=== PATIENT | male | born 1945 | race Two or more races ===

== ENCOUNTER → 2018-08-29 | Outpatient (CLI) | payer OTHER ==
[~2018-08-29] MED LIST: ALLO100T30 PO; DOXA2TAB9 PO; LISI1TAB5 PO; OMEP20TA62 PO; PRAV10TA2 PO
[2018-08-29 11:51] LABS: CHLORIDE 107 mmol/L (98-107)
[2018-08-29 12:00] LABS: ALANINE AMINOTRANSFERASE 22 U/L (12-78); ALBUMIN 3.8 g/dL (3.4-5.0); ALKALINE PHOSPHATASE 95 U/L (45-117); ANION GAP 5 mmol/L (5-15); BILIRUBIN,TOTAL 0.5 mg/dL (0.2-1.0); CREATININE 1.39 mg/dL (0.7-1.3); TOTAL PROTEIN 7.4 g/dL (6.4-8.2)
== END | disposition home or self-care (01) ==
LOC: STAR 10:52
PROVIDERS: ATTEND Surgery
DX: Z01.818 Encounter for other preprocedural examination (principal); K40.20 Bilateral inguinal hernia, without obstruction or gangrene, not specified as recurrent
CPT/HCPCS: 36415; 80053; 93005

== ENCOUNTER 2018-09-07 06:45 | Day surgery (SDC) | payer OTHER ==
[~2018-09-07] VITALS: Ht 170.2 cm; Wt 74.8 kg
[2018-09-07] MEDS ORDERED: BUPIVACAINE/PF-EPI 0.5% 1:200K ONE (06:50)
[2018-09-07] MEDS ORDERED: LACTATED RINGERS 1,000 ML IV SCH (07:32)
[2018-09-07] MEDS ORDERED: ACETAMINOPHEN 500 MG TABLET PO STA (08:19)
[2018-09-07] MEDS ORDERED: GABAPENTIN 300 MG CAPSULE PO STA (08:19)
[2018-09-07] MEDS ORDERED: TAMSULOSIN 0.4 MG CAP.ER.24H PO STA (08:26)
[2018-09-07] MEDS ORDERED: MIDAZOLAM 1 MG/ML, 2ML ONE (08:33)
[2018-09-07] MEDS ORDERED: FENTANYL PF 250 MCG/5ML ONE (08:33)
[2018-09-07] MEDS ORDERED: ROCURONIUM 10MG/ML,5ML ONE (08:34)
[2018-09-07] MEDS ORDERED: NEOSTIGMINE 1 MG/ML, 10ML ONE (09:18)
[2018-09-07] MEDS ORDERED: PHENYLEPHRINE 10 MG/ML ONE (09:18)
[2018-09-07] MEDS ORDERED: GLYCOPYRROLATE 0.2MG/1ML, 5ML ONE (09:18)
[2018-09-07] MEDS ORDERED: CEFOTETAN PMX 2GM/50ML 50 ML ONE (09:30)
[2018-09-07] MEDS ORDERED: VASOPRESSIN 20 UNIT/ML, 1ML ONE (09:41)
[2018-09-07] MEDS ORDERED: DEXAMETHASONE 4 MG/ML, 5ML ONE (09:45)
[2018-09-07] MEDS ORDERED: ONDANSETRON 2MG/ML, 2ML ONE ×2 (09:45)
[2018-09-07] MEDS ORDERED: PROPOFOL 10 MG/ML, 20ML ONE (09:45)
[2018-09-07] MEDS ORDERED: LIDOCAINE 2% 100MG/5ML SYRINGE ONE (09:45)
[2018-09-07] MEDS ORDERED: MEPERIDINE/PF 25MG/0.5ML IVPush PRN (10:30)
[2018-09-07] MEDS ORDERED: HALOPERIDOL 5 MG/ML IV PRN (10:30)
[2018-09-07] MEDS ORDERED: HYDROmorphone 2 MG/ML, 1ML IVPush PRN (10:30)
[2018-09-07] MEDS ORDERED: OXYcodone 5 MG/5 ML ORAL.SOL UDC PO PRN (10:30)
[2018-09-07] MEDS ORDERED: hydrALAzine 20 MG/ML, 1ML IV PRN (10:30)
[2018-09-07] MEDS ORDERED: PROMETHAZINE 25 MG/ML, 1ML IV PRN (10:30)
[2018-09-07] MEDS ORDERED: FENTANYL PF 100 MCG/2ML ONE (11:14)
[2018-09-07] MEDS ORDERED: OXYcodone 5 MG/5 ML ORAL.SOL UDC ONE (11:15)
[2018-09-07] MEDS: FENTANYL PF 100 MCG/2ML IV PRN ×3 (11:16→11:31)
[2018-09-07] MEDS ORDERED: DIPHENHYDRAMINE 50 MG/ML, 1ML IVPush PRN (13:30)
[2018-09-07] MEDS ORDERED: KETOROLAC 30 MG/1 ML ONE (14:11)
[2018-09-07] MEDS ORDERED: KETOROLAC 30 MG/1 ML IVPush PRN (14:30)
== END 2018-09-07 18:15 | disposition home or self-care (01) ==
LOC: OUT 06:45
PROVIDERS: ATTEND Surgery
DX: K40.91 Unilateral inguinal hernia, without obstruction or gangrene, recurrent (principal); K40.90 Unilateral inguinal hernia, without obstruction or gangrene, not specified as recurrent; M10.9 Gout, unspecified; K21.9 Gastro-esophageal reflux disease without esophagitis; I10 Essential (primary) hypertension; Z98.890 Other specified postprocedural states; Z88.8 Allergy status to other drugs, medicaments and biological substances
CPT/HCPCS: 49650; 49651; C1781; J1100; J1200; J1885; J2250; J2370; J2405; J2704; J2710; J3010; J3490; J7120